=== PATIENT | male | born 1965 | race Caucasian/White ===

== ENCOUNTER 2022-02-03 14:50 | Inpatient (IN) | payer BC, OTHER ==
[2022-02-03 15:55] VITALS: BMI 29.2
[2022-02-03 18:10] LABS: BASO % 0.6 % (0-2.0); EOS % 4.9 % (0-4.5); HEMATOCRIT 37.3 % (35.4-49); HEMOGLOBIN 12.7 GM/dL (11.7-16.9); LYMPH % 32.6 % (8-40); MCH 32.4 pg (25.7-33.7); MEAN CELL VOLUME 95.2 fl (80-96); MEAN PLT VOLUME 8.5 fl (7.5-11.1); MONO % 10.7 % (3.8-10.2); NEUT % 51.2 % (42.8-82.8); PLATELET COUNT 91 10^3/uL (134-434); RBC 3.91 M/mm3 (4.00-5.60); RDW 15.9 % (11.9-15.9); WHITE BLOOD COUNT 3.6 K/mm3 (4.0-10.0)
[2022-02-03 18:19] LABS: INR 1.43 (0.83-1.09); PROTHROMBIN TIME (PATIENT) 16.5 SEC (9.7-13.0)
[2022-02-03 18:22] LABS: ACTIVATED PTT 34.8 SECONDS (25.2-36.5)
[2022-02-03 18:36] LABS: ALBUMIN 3.6 g/dl (3.4-5.0); BLOOD UREA NITROGEN 15.8 mg/dL (7-18); CALCIUM 9.4 mg/dL (8.5-10.1)
[2022-02-03 18:40] LABS: CREATININE 1.1 mg/dL (0.55-1.3)
[2022-02-03 18:41] LABS: BILIRUBIN,TOTAL 1.7 mg/dL (0.2-1); TOT PROT 7.3 g/dl (6.4-8.2)
[2022-02-04] MEDS ORDERED: SODIUM CHLORIDE 1,000 ML IV SCH ×2 (01:00→13:57)
[2022-02-04 06:45] LABS: HEMATOCRIT 34.1 % (35.4-49); HEMOGLOBIN 11.5 GM/dL (11.7-16.9); MCH 32.1 pg (25.7-33.7); MCHC 33.8 g/dl (32.0-35.9); MEAN CELL VOLUME 95.2 fl (80-96); MEAN PLT VOLUME 8.3 fl (7.5-11.1); PLATELET COUNT 73 10^3/uL (134-434); RBC 3.58 M/mm3 (4.00-5.60); RDW 15.8 % (11.9-15.9); WHITE BLOOD COUNT 2.9 K/mm3 (4.0-10.0)
[2022-02-04 07:06] LABS: CALCIUM 8.7 mg/dL (8.5-10.1); MAGNESIUM 1.6 mg/dL (1.8-2.4)
[2022-02-04 07:09] LABS: PHOSPHOROUS 3.9 mg/dL (2.5-4.9)
[2022-02-04 07:10] LABS: CREATININE 0.9 mg/dL (0.55-1.3)
[2022-02-04] MEDS: INSULIN SLIDING SCALE (NOVOLOG) 1 VIAL SQ SCH ×4 (07:10→21:25)
[2022-02-04 07:11] LABS: BILIRUBIN,TOTAL 1.7 mg/dL (0.2-1); TOT PROT 6.1 g/dl (6.4-8.2)
[2022-02-04] MEDS ORDERED: MAGNESIUM SULFATE IN WATER 2 GM/50 ML IVPB IVPB ONE (08:45)
[2022-02-04 09:55] LABS: RETICULOCYTES 1.24 % (0.5-1.5)
[2022-02-04] MEDS ORDERED: ALLOPURINOL 300 MG TABLET (FP) PO SCH (10:00)
[2022-02-04] MEDS ORDERED: RIFAXIMIN 550 MG TABLET PO SCH (10:00)
[2022-02-04] MEDS ORDERED: FUROSEMIDE 20 MG TABLET (FP) PO SCH (10:00)
[2022-02-04] MEDS ORDERED: PANTOPRAZOLE 40 MG TABLET PO SCH (10:00)
[2022-02-04] MEDS ORDERED: SACUBITRIL/VALSARTAN 24 MG-26 MG TABLET PO SCH (10:00)
[2022-02-04] MEDS ORDERED: CARVEDILOL 6.25 MG TABLET (FP) PO SCH (10:00)
[2022-02-04] MEDS ORDERED: THIAMINE HCL 100 MG TABLET (FP) PO SCH (10:00)
[2022-02-04 10:42] LABS: ANISOCYTOSIS 0; HELMET CELLS 0; HOWELL-JOLLY BODIES 0; MACROCYTOSIS 0; OVALOCYTE 0; ROULEAU 0; SICKELED CELLS 0; TARGET CELLS 0; TEAR DROP CELLS 0; TOXIC GRANULATION 0
[2022-02-04] MEDS ORDERED: LIDOCAINE HCL 2% (20ML MULTI-DOSE VIAL) ONE (12:13)
[2022-02-04] MEDS ORDERED: MIDAZOLAM HCL 2 MG/2 ML SINGLE DOSE VIAL ONE (12:54)
[2022-02-04] MEDS ORDERED: LIDOCAINE HCL 2% (50ML VIAL) INF ONE (13:00)
[2022-02-04] MEDS ORDERED: ceFAZolin SODIUM 1 GM VIAL ONE (13:03)
[2022-02-04] MEDS ORDERED: ceFAZolin SODIUM 1 GM VIAL IVPB ONE (13:25)
[2022-02-04] MEDS ORDERED: ONDANSETRON 4 MG/2 ML VIAL IVPUSH PRN ×2 (13:44→13:57)
[2022-02-04] MEDS ORDERED: oxyCODONE HCL 5 MG TABLET PO PRN ×2 (13:44→13:57)
[2022-02-04] MEDS ORDERED: MAGNESIUM 2GM/50ML STERILE WATER IVPB IVPB ONE (16:35)
[2022-02-04] MEDS: VANCOMYCIN/WATER 1250 MG 1,250 MG/250 ML BAG IVPB SCH (17:09)
[2022-02-04] MEDS: CEFTRIAXONE 2 GM in DEXTROSE 5%-WATER 2 GM/100 ML BAG IVPB SCH (17:10)
[2022-02-04] MEDS: CARVEDILOL 6.25 MG TABLET (FP) PO SCH (21:23)
[2022-02-04] MEDS: SACUBITRIL/VALSARTAN 24 MG-26 MG TABLET PO SCH (21:24)
[2022-02-04] MEDS: RIFAXIMIN 550 MG TABLET PO SCH (21:25)
[2022-02-05] MEDS: VANCOMYCIN/WATER 1250 MG 1,250 MG/250 ML BAG IVPB SCH ×2 (04:00→18:10)
[2022-02-05] MEDS: INSULIN SLIDING SCALE (NOVOLOG) 1 VIAL SQ SCH ×4 (06:36→21:58)
[2022-02-05 08:29] LABS: HEMATOCRIT 33.3 % (35.4-49); HEMOGLOBIN 11.3 GM/dL (11.7-16.9); MCH 32.8 pg (25.7-33.7); MEAN CELL VOLUME 96.3 fl (80-96); MEAN PLT VOLUME 8.1 fl (7.5-11.1); PLATELET COUNT 69 10^3/uL (134-434); RBC 3.45 M/mm3 (4.00-5.60); RDW 15.7 % (11.9-15.9); WHITE BLOOD COUNT 2.9 K/mm3 (4.0-10.0)
[2022-02-05 09:07] LABS: ALBUMIN 2.9 g/dl (3.4-5.0); CALCIUM 8.3 mg/dL (8.5-10.1); MAGNESIUM 1.8 mg/dL (1.8-2.4)
[2022-02-05 09:08] LABS: BLOOD UREA NITROGEN 14.6 mg/dL (7-18)
[2022-02-05 09:10] LABS: CREATININE 0.9 mg/dL (0.55-1.3); PHOSPHOROUS 3.7 mg/dL (2.5-4.9)
[2022-02-05] MEDS: CEFTRIAXONE 2 GM in DEXTROSE 5%-WATER 2 GM/100 ML BAG IVPB SCH (09:59)
[2022-02-05] MEDS: RIFAXIMIN 550 MG TABLET PO SCH ×2 (09:59→21:57)
[2022-02-05] MEDS: THIAMINE HCL 100 MG TABLET (FP) PO SCH (09:59)
[2022-02-05] MEDS: FUROSEMIDE 20 MG TABLET (FP) PO SCH (09:59)
[2022-02-05] MEDS: CARVEDILOL 6.25 MG TABLET (FP) PO SCH ×2 (09:59→21:57)
[2022-02-05] MEDS: SACUBITRIL/VALSARTAN 24 MG-26 MG TABLET PO SCH ×2 (09:59→21:57)
[2022-02-05] MEDS: PANTOPRAZOLE 40 MG TABLET PO SCH (09:59)
[2022-02-05] MEDS: ALLOPURINOL 300 MG TABLET (FP) PO SCH (09:59)
[2022-02-05] MEDS ORDERED: INSULIN (NOVOLOG) ASPART 100 UNITS/ML 10ML VIAL ONE ×2 (11:30→16:55)
[2022-02-05] MEDS ORDERED: MAGNESIUM SULF 50% (8.12 MEQ/2 ML-1 GM VIAL) IVPB ONE (15:45)
[2022-02-05] MEDS ORDERED: LACTOBACILLUS ACIDOPHILUS 1 TABLET PO ONE (16:50)
[2022-02-06] MEDS: VANCOMYCIN/WATER 1250 MG 1,250 MG/250 ML BAG IVPB SCH (06:18)
[2022-02-06] MEDS: INSULIN SLIDING SCALE (NOVOLOG) 1 VIAL SQ SCH ×4 (06:46→22:23)
[2022-02-06 09:00] LABS: HEMATOCRIT 37.8 % (35.4-49); HEMOGLOBIN 12.8 GM/dL (11.7-16.9); MCH 32.5 pg (25.7-33.7); MCHC 33.8 g/dl (32.0-35.9); MEAN PLT VOLUME 8.4 fl (7.5-11.1); PLATELET COUNT 84 10^3/uL (134-434); RBC 3.93 M/mm3 (4.00-5.60); RDW 15.8 % (11.9-15.9); WHITE BLOOD COUNT 3.2 K/mm3 (4.0-10.0)
[2022-02-06 09:58] LABS: ALBUMIN 3.2 g/dl (3.4-5.0); MAGNESIUM 1.7 mg/dL (1.8-2.4)
[2022-02-06 09:59] LABS: BLOOD UREA NITROGEN 16.1 mg/dL (7-18)
[2022-02-06 10:03] LABS: BILIRUBIN,TOTAL 1.8 mg/dL (0.2-1); TOT PROT 6.8 g/dl (6.4-8.2)
[2022-02-06] MEDS: PANTOPRAZOLE 40 MG TABLET PO SCH (10:04)
[2022-02-06] MEDS: CEFTRIAXONE 2 GM in DEXTROSE 5%-WATER 2 GM/100 ML BAG IVPB SCH (10:04)
[2022-02-06] MEDS: ALLOPURINOL 300 MG TABLET (FP) PO SCH (10:04)
[2022-02-06] MEDS: RIFAXIMIN 550 MG TABLET PO SCH ×2 (10:04→22:23)
[2022-02-06] MEDS: CARVEDILOL 6.25 MG TABLET (FP) PO SCH ×2 (10:04→22:23)
[2022-02-06] MEDS: SACUBITRIL/VALSARTAN 24 MG-26 MG TABLET PO SCH ×2 (10:04→22:23)
[2022-02-06] MEDS: THIAMINE HCL 100 MG TABLET (FP) PO SCH (10:04)
[2022-02-06] MEDS: FUROSEMIDE 20 MG TABLET (FP) PO SCH (10:04)
[2022-02-06] MEDS ORDERED: MAGNESIUM 2GM/50ML STERILE WATER IVPB IVPB ONE (15:51)
[2022-02-07] MEDS: INSULIN SLIDING SCALE (NOVOLOG) 1 VIAL SQ SCH ×3 (06:52→17:26)
[2022-02-07 09:33] VITALS: RESP 18
[2022-02-07 09:35] LABS: HEMATOCRIT 36.8 % (35.4-49); HEMOGLOBIN 12.4 GM/dL (11.7-16.9); MCH 32.4 pg (25.7-33.7); MCHC 33.8 g/dl (32.0-35.9); MEAN CELL VOLUME 95.9 fl (80-96); MEAN PLT VOLUME 8.5 fl (7.5-11.1); PLATELET COUNT 86 10^3/uL (134-434); RBC 3.84 M/mm3 (4.00-5.60); RDW 15.9 % (11.9-15.9); WHITE BLOOD COUNT 3.9 K/mm3 (4.0-10.0)
[2022-02-07] MEDS: CEFTRIAXONE 2 GM in DEXTROSE 5%-WATER 2 GM/100 ML BAG IVPB SCH (09:54)
[2022-02-07] MEDS: THIAMINE HCL 100 MG TABLET (FP) PO SCH (09:56)
[2022-02-07] MEDS: PANTOPRAZOLE 40 MG TABLET PO SCH (09:56)
[2022-02-07] MEDS: RIFAXIMIN 550 MG TABLET PO SCH (09:56)
[2022-02-07] MEDS: ALLOPURINOL 300 MG TABLET (FP) PO SCH (09:56)
[2022-02-07] MEDS: FUROSEMIDE 20 MG TABLET (FP) PO SCH (09:57)
[2022-02-07] MEDS: CARVEDILOL 6.25 MG TABLET (FP) PO SCH (09:57)
[2022-02-07 10:03] LABS: ALBUMIN 3.2 g/dl (3.4-5.0); CALCIUM 8.9 mg/dL (8.5-10.1); MAGNESIUM 1.5 mg/dL (1.8-2.4)
[2022-02-07 10:04] LABS: PHOSPHOROUS 3.6 mg/dL (2.5-4.9)
[2022-02-07 10:05] LABS: CREATININE 0.9 mg/dL (0.55-1.3)
[2022-02-07 10:06] LABS: BILIRUBIN,TOTAL 1.8 mg/dL (0.2-1); TOT PROT 6.5 g/dl (6.4-8.2)
[2022-02-07] MEDS: SACUBITRIL/VALSARTAN 24 MG-26 MG TABLET PO SCH (11:51)
[2022-02-07] MEDS ORDERED: MAGNESIUM SULFATE IN WATER 2 GM/50 ML IVPB IVPB ONE (14:49)
[2022-02-07 15:58] VITALS: BP 102/66; PULSE 70; TEMP 99
== END 2022-02-07 18:15 | disposition home health service (06) | DRG 982 ==
LOC: JOR 14:50 → JERBED 16:08 → OBSVTOIN 19:41 → J8W 02-04 06:27
PROVIDERS: ADMIT Internal Medicine; ATTEND Internal Medicine
PROC: 0LNV0ZZ Release Right Foot Tendon, Open Approach (ICD-10-PCS; 2022-02-04)
PROC: 0QBQ0ZX Excision of Right Toe Phalanx, Open Approach, Diagnostic (ICD-10-PCS; principal; 2022-02-04 11:30)
PROC: 02HV33Z Insertion of Infusion Device into Superior Vena Cava, Percutaneous Approach (ICD-10-PCS; 2022-02-07)
PROC: B518ZZA Fluoroscopy of Superior Vena Cava, Guidance (ICD-10-PCS; 2022-02-07)
DX: E11.69 Type 2 diabetes mellitus with other specified complication (principal); D61.818 Other pancytopenia; L97.518 Non-pressure chronic ulcer of other part of right foot with other specified severity; M86.8X7 Other osteomyelitis, ankle and foot; E11.621 Type 2 diabetes mellitus with foot ulcer; E78.5 Hyperlipidemia, unspecified; K74.60 Unspecified cirrhosis of liver; D69.6 Thrombocytopenia, unspecified; E11.40 Type 2 diabetes mellitus with diabetic neuropathy, unspecified; I87.2 Venous insufficiency (chronic) (peripheral); M20.41 Other hammer toe(s) (acquired), right foot; M20.5X1 Other deformities of toe(s) (acquired), right foot
CPT/HCPCS: 36415; 36569; 73630-TC-RT-FY; 77001-TC-FY; 80053; 82248; 82728; 82962; 83036; 83540; 83550; 83735; 84100; 85025; 85027; 85045; 85610; 85651; 85730; 86850; 86900; 86901; 87070; 87075; 87205; 88307-TC; 88311-TC; 94010; 94760; 99285-25; C1751; C9803-CS; G0378; U0003; U0005